=== PATIENT | male | born 1960 | race Caucasian/White ===

== ENCOUNTER 2016-11-19 01:41 | Inpatient (IN) | payer MEDICARE, MEDICAID ==
[~2016-11-19] VITALS: Ht 170.2 cm; Wt 120.7 kg
[~2016-11-19 01:41] MED LIST: AMBIEN10 MG PO; ATIVAN1 MG PO; BAYER CHEWABLE81 MG PO; CATAPRES0.3 MG PO; COLACE100 MG PO; COREG12.5 MG PO; DESERYL100 MG PO; DIFLUCAN200 MG PO; EFFEXOR75 MG PO; FIBRICOR35 MG PO; FISH OIL 1,2001 CAP PO; FLAGYL500 MG PO; GAS-X80 MG PO; HCTZ25 MG PO; HYTRIN10 MG PO; IMDUR30 MG PO; K-DUR20 MEQ PO; LANTUS INSULIN10 ML SC; LASIX 40 M40 MG/5 ML PT; LIPITOR80 MG PO; LOMOTIL TABLET1 TAB PO; LYRICA150 MG PO; MICONAZOLE NITR28 GM; NORVASC5 MG PO; NOVOLIN 70/30 110 ML; OPTIVE SENSITI1 EACH EACH EYE; OXYBUTYNIN CHLOR5 MG PO; PERFOROMIS20 MCG/21 INH; PLAVIX75 MG PO; PRILOSEC20 MG PO; PROAIR HFA8.5 GM INH; REFRESH TEARS15 ML EACH EYE; SPIRIVA18 MCG INH; ULTRAM50 MG PO; VOLTAREN100 GM TOPICAL; ZANAFLEX6 MG PO
[2016-11-19 02:26] LABS: BASOPHILS 0.6 % (0.0-2.0); EOSINOPHILS 2.8 % (0-7); HEMATOCRIT 40.6 % (42.0-54.0); HEMOGLOBIN 14.1 g/dL (13.5-17.5); IMMATURE GRANULOCYTES 0.2 % (0-5); LYMPHOCYTES 26.9 % (15-50); MCH 28.6 pg (26.0-34.0); MCHC 34.7 g/dL (31.0-37.0); MCV 82.4 fL (80.0-100.0); MEAN PLATELET VOLUME 11.4 fL (7.4-10.4); MONOCYTES 7.8 % (2-11); NEUTROPHILS 61.7 % (40-80); PLATELET COUNT 206 10x3/uL (130-400); RBC 4.93 10x6/uL (4.20-6.10); RDW 13.2 % (11.5-14.5); WBC 8.5 10x3/uL (4.8-10.8)
[2016-11-19 02:27] LABS: APPEARANCE CLEAR (CLEAR); BILIRUBIN NEGATIVE (NEGATIVE); COLOR STRAW (YELLOW); GLUCOSE 1000 mg/dL (NEGATIVE); KETONE NEGATIVE (NEGATIVE); LEUKOCYTE ESTERASE NEGATIVE (NEGATIVE); NITRITE NEGATIVE (NEGATIVE); PH 7.5 (5.0-6.0); PROTEIN NEGATIVE (NEGATIVE); SPECIFIC GRAVITY 1.005 (1.005-1.020); UROBILINOGEN NORMAL (NORMAL)
[2016-11-19 02:37] LABS: ALBUMIN 3.4 g/dL (3.4-5.0); ALKALINE PHOSPHATASE 119 U/L (46-116); ALT (SGPT) 19 U/L (10-68); BILIRUBIN - TOTAL 0.31 mg/dL (0.2-1.3); CALCIUM 9.1 mg/dL (8.5-10.1); CARBON DIOXIDE 28.1 mmol/L (21.0-32.0); CHLORIDE - SERUM 96 mmol/L (98-107); CREATININE - SERUM 0.8 mg/dL (0.6-1.3); POTASSIUM - SERUM 3.8 mmol/L (3.5-5.1); PROTEIN - SERUM 6.9 g/dL (6.4-8.2); SODIUM 132 mmol/L (136-145); UREA NITROGEN 13 mg/dL (7-18); eGFR NON AFRICAN AMERICAN > 90 mL/min (90-120)
[2016-11-19 02:50] LABS: CREATINE KINASE 108 UL (21-232); MAGNESIUM - SERUM 1.7 mg/dL (1.8-2.4); PRO BNP 25 pg/mL (0-125)
[2016-11-19 02:51] LABS: CALC OSMOLALITY 290 mosm/kg (275-300); GLUCOSE 561 mg/dL (74-106)
--- NOTE | 2016-11-19 06:22 | NUR ---
ADMIT TO ROOM 239 FROM ER. PT ALERT/ORIENTED. SALINE LOCK TO RIGHT A/C. LEFT AKA, BUT IS ABLE TO TRANSFER WITH MINIMAL ASSISTANCE. ADMISSION ASSESSMENT AND HISTORY INITIATED.
[2016-11-19 06:49] VITALS: BP 141/78; BMI 40.8
[2016-11-19] MEDS ORDERED: XIGDUO XR 5 MG1 EAC1 (07:40)
[2016-11-19] MEDS ORDERED: COZAAR100 MG PO (07:49)
[2016-11-19 08:00] VITALS: BP 156/81
--- NOTE | 2016-11-19 09:55 | NUR ---
PT IS ALERT. ASSESSMENT DONE PER FLOWSHEET. NO OTHER NEEDS AT THIS TIME. WILL CONTINUE TO MOINTOR.
--- NOTE | 2016-11-19 10:57 | NUR ---
PT OOB AT THIS TIME. TEACHING ABOUT SCD'S DONE WELL. WILL CONTINUE TO MONTIOR.
[2016-11-19 12:00] VITALS: BP 114/83
[2016-11-19 13:58] VITALS: Ht 170.2 cm; Wt 120.7 kg
[2016-11-19 16:00] VITALS: BP 137/81
[2016-11-19 16:32] LABS: HEMOGLOBIN A1C 11.5 % (4.8-6.0)
--- NOTE | 2016-11-19 19:15 | NUR ---
Received report from Alicia VALENTINE.
--- NOTE | 2016-11-19 19:30 | NUR ---
Received patient resting in bed, alert and oriented x 4, Right AC PIV is SL, denies any pain or discomfort at this time, on room air.
--- NOTE | 2016-11-19 21:34 | NUR ---
Stat serum glucose ordered per protocol, HS BG = 425 and recheck = 434. Holding insulin until serum level obtained.
[2016-11-19 21:39] VITALS: BP 144/85
--- NOTE | 2016-11-19 22:17 | NUR ---
Serum glucose level = 426, given routine dose of Lantus insulin 90 Units and 20 Units Regular sliding scale insulin. Paged Uyen Pepper APN to notify of same.
--- NOTE | 2016-11-19 22:35 | NUR ---
Received call back from Uyen Pepper APN, insulin was adjusted already today, will continue to monitor for effectiveness. No new orders at this time.
--- NOTE | 2016-11-20 01:14 | NUR ---
Resting quietly at this time, respirations easy and regular, has taken oxygen off, pulse ox on room air = 98%, stated earlier that he only uses PRN when feeling SOB. Deemed to be sleeping at this time.
[2016-11-20 01:40] VITALS: BP 111/67
[2016-11-20 04:56] VITALS: BP 136/72
[2016-11-20 06:03] LABS: BASOPHILS 0.1 % (0.0-2.0); EOSINOPHILS 0.1 % (0-7); HEMOGLOBIN 14.1 g/dL (13.5-17.5); IMMATURE GRANULOCYTES 0.3 % (0-5); LYMPHOCYTES 10.7 % (15-50); MCH 28.1 pg (26.0-34.0); MCHC 34.4 g/dL (31.0-37.0); MCV 81.8 fL (80.0-100.0); MEAN PLATELET VOLUME 11.6 fL (7.4-10.4); MONOCYTES 1.6 % (2-11); NEUTROPHILS 87.2 % (40-80); PLATELET COUNT 197 10x3/uL (130-400); RBC 5.01 10x6/uL (4.20-6.10); RDW 13.5 % (11.5-14.5)
[2016-11-20 06:29] LABS: CALC OSMOLALITY 282 mosm/kg (275-300); CARBON DIOXIDE 23.1 mmol/L (21.0-32.0); CHLORIDE - SERUM 96 mmol/L (98-107); CREATININE - SERUM 0.7 mg/dL (0.6-1.3); SODIUM 131 mmol/L (136-145); UREA NITROGEN 15 mg/dL (7-18); eGFR NON AFRICAN AMERICAN > 90 mL/min (90-120)
--- NOTE | 2016-11-20 06:30 | NUR ---
Received call from Operations Forester with critical lab, serum glucose = 433 @0599 lab draw. Already has been rechecked via fingerstick @0610 = 393. Received 16 Units regular insulin per sliding scale. See previous note, aware of elevated BGs and has been regulating insulin doses.
[2016-11-20 06:35] LABS: GLUCOSE 433 mg/dL (74-106)
[2016-11-20 08:01] VITALS: BP 105/55
--- NOTE | 2016-11-20 11:39 | NUR ---
FSBS 509, CALLED LAB FOR A STAT GLUCOSE REDRAW.
--- NOTE | 2016-11-20 11:40 | NUR ---
HELD BP MEDS BP 105/55.
--- NOTE | 2016-11-20 11:40 | NUR ---
CALLED PHARMACY, WAITING FOR LANTUS TO BE BROUGHT UP.
--- NOTE | 2016-11-20 11:45 | NUR ---
PATIENT C/O GENERALIZED PAIN, HE HAS NEUROPATHY, PHANTOM PAIN IN LEFT AMPUTATION, HE HAS BILATERAL SHOULDER PAIN. 50 MG ULTRAM PO GIVEN NOW.
--- NOTE | 2016-11-20 11:52 | HP ---
PATIENT: STANTON CHAN MEDICAL RECORD: [id number] ACCOUNT: [id number] LOCATION:[address] : [birth year] ADMISSION DATE: 11/19/16 HISTORY AND PHYSICAL EXAMINATION HISTORY OF PRESENT ILLNESS: Mr. Chan is a 56-year-old white male patient of Dr. Brown with known COPD and trach with tracheostomy for over 16 years, who presents with increasing shortness of breath and dyspnea on exertion, orthopnea. He has above-knee amputation of the left leg. He has had recent weight loss. He ran out of his COPD meds approximately 4 months ago and never got them filled, did not think he needed them anymore. He states he has not smoked in 10 years. He is admitted at this time with a COPD exacerbation. PAST MEDICAL HISTORY: Significant for previous CVA, neuropathy, AKA left knee, diabetes, hypertension, coronary artery disease with previous stents, COPD, sleep apnea with trach. PAST SURGICAL HISTORY: Include a T&A, bilateral rotator cuff, left knee surgery, left [id number] amputation, tracheostomy previous stent. ALLERGIES: PENICILLIN, CLINDAMYCIN, CLARITHROMYCIN. HOME MEDICATIONS: Include furosemide 40 mg a day, omeprazole 20 mg b.i.d., tramadol p.r.n., lorazepam 1 t.i.d., Ambien 10 mg at bedtime, terazosin 10 mg at bedtime, fenofibrate 35 daily, amlodipine 5 daily, potassium chloride 20 mEq t.i.d., NPH 70/30, atorvastatin 80 mg a day, aspirin 81 mg a day, clopidogrel 75 mg a day, Lyrica 150 t.i.d., Lantus 90 b.i.d., Xigduo XR 5 mg/1000 mg daily and Cozaar 100 mg b.i.d. FAMILY HISTORY: Significant for cardiovascular disease, diabetes and cancer. SOCIAL HISTORY: The patient's says he has not smoked in 10 years. REVIEW OF SYSTEMS: ____ fever, has had productive cough with discolored sputum, coughing, wheezing. No abdominal pain, no nausea or vomiting. PHYSICAL EXAMINATION: GENERAL: Pleasant and cooperative. HEAD: Normocephalic. NECK: Soft and supple. HEART: Regular. LUNGS: With bilateral wheezes and coarse sounds. ABDOMEN: Soft. EXTREMITIES: Has above-knee amputation of the left. IMPRESSION: Chronic obstructive pulmonary disease exacerbation, uncontrolled diabetes, previous cerebrovascular accident, obstructive sleep disorder, diabetes uncontrolled. PLAN: Admit. We will get a hemoglobin A1c, pulmonary toilet, monitor sugars, probably going to go up with steroids, DVT prophylaxis. See orders for the rest of the plan. TRANSINT:[id number] Voice Confirmation ID: [id number] DOCUMENT ID: [id number] HISTORY AND PHYSICAL [id number] STANTON CHAN MATTHEW DO at 1152 CC: [id number] DICTATION DATE: 11/19/16 [address] QUARTER DOPER: 11/19/161958 ADM IN [facility] [address] [place] [address]
--- NOTE | 2016-11-20 12:05 | NUR ---
SPOKE TO AXEL NURSE PRACTITIONER WITH DR. HODGE AND LET HER KNOW ABOUT PATIENTS BLOOD SUGAR, SHE SAYS TO FOLLOW HIGH SLIDING SCALE. PATIENT RECEIVED 28 UNITS REG INSULIN IN ABDOMEN. RECHECK BLOOD SUGAR IN TWO HOURS.
[2016-11-20 12:24] VITALS: BP 119/60
[2016-11-20 12:51] LABS: HEMOGLOBIN A1C 10.9 % (4.8-6.0)
[2016-11-20 16:00] VITALS: BP 133/63
--- NOTE | 2016-11-20 16:31 | NUR ---
PATIENT C/O H/A RATES IT 8/10 TRAMADOL 50 MG PO GIVEN.
--- NOTE | 2016-11-20 16:41 | NUR ---
FSBS 462, PAGED AXEL TO LET HER BE AWARE.
--- NOTE | 2016-11-20 17:10 | NUR ---
PATIENT SAYS PAIN IS LESS, BUT STILL HAS PAIN, SAYS HE ALWAYS HAS PAIN.
[2016-11-20 20:00] VITALS: BP 148/78
[2016-11-21] VITALS: BP 131/74
--- NOTE | 2016-11-21 | NUR ---
RIGHT ABDOMEN BLEEDING FROM LOVENOX SHOT RECEIVED ON DAY SHIFT. APPLIED SMALL PRESSURE DRESSING AND ICE PACK. BLEEDING APPEARS TO HAVE STOPPED. NO OTHER NEEDS. PT SITTING UP IN CHAIR. WILL CONTINUE TO MONITOR.
[2016-11-21 04:00] VITALS: BP 139/83
--- NOTE | 2016-11-21 04:27 | NUR ---
RIGHT ABDOMEN BLEEDING AGAIN. APPLIED NEW PRESSURE DRESSING AND ICE. WILL CONTINUE TO MONITOR.
[2016-11-21 06:46] LABS: BASOPHILS 0.1 % (0.0-2.0); EOSINOPHILS 0.1 % (0-7); HEMATOCRIT 38.6 % (42.0-54.0); HEMOGLOBIN 13.1 g/dL (13.5-17.5); IMMATURE GRANULOCYTES 0.6 % (0-5); LYMPHOCYTES 9.7 % (15-50); MCH 27.8 pg (26.0-34.0); MCHC 33.9 g/dL (31.0-37.0); MEAN PLATELET VOLUME 12.3 fL (7.4-10.4); MONOCYTES 4.3 % (2-11); NEUTROPHILS 85.2 % (40-80); PLATELET COUNT 219 10x3/uL (130-400); RBC 4.71 10x6/uL (4.20-6.10); RDW 13.6 % (11.5-14.5); WBC 10.6 10x3/uL (4.8-10.8)
[2016-11-21 06:59] LABS: CALC OSMOLALITY 288 mosm/kg (275-300); CALCIUM 8.9 mg/dL (8.5-10.1); CARBON DIOXIDE 24.4 mmol/L (21.0-32.0); CHLORIDE - SERUM 102 mmol/L (98-107); CREATININE - SERUM 0.6 mg/dL (0.6-1.3); POTASSIUM - SERUM 3.6 mmol/L (3.5-5.1); SODIUM 138 mmol/L (136-145); UREA NITROGEN 15 mg/dL (7-18); eGFR NON AFRICAN AMERICAN > 90 mL/min (90-120)
[2016-11-21 07:03] LABS: GLUCOSE 319 mg/dL (74-106)
--- NOTE | 2016-11-21 08:01 | NUR ---
ASSESSMENT DONE. PT DRESSING AND SITTING IN CHAIR AT BEDSIDE, RECEIVING BREATHING TX. A/O. NO DISTRESS NOTED. DENIES NEEDS. CALL LIGHT WITH IN REACH. WILL CONT. TO MONITOR.
[2016-11-21 08:22] VITALS: BP 152/85
--- NOTE | 2016-11-21 10:26 | NUR ---
PT SITTING IN CHAIR NAD NOTED DENIES ANY NEEDS AT THIS TIME
[2016-11-21 12:42] VITALS: BP 153/76
[2016-11-21 16:55] VITALS: BP 147/78
--- NOTE | 2016-11-21 18:06 | NUR ---
PT UP IN W/C, PUSHING SELF IN SOLER. NO DISTRESS NOTED. DENIES NEEDS.
[2016-11-21 21:31] VITALS: BP 150/78
--- NOTE | 2016-11-21 23:19 | NUR ---
PTS INITIAL FSBS @ 21:00 WAS 449. I USED THE S/S ORDERED AND ADMINISTERED 28 UNITS SC ALONG WITH PTS ORDERED LANTUS OF 100 UNITS SC. PT ALSO RECEIVED SOLU-MEDROL 40MG IVP. WHEN RECHECKING PTS FSBS JUST NOW, IT WAS 540. I CALLED THE PHYSICIAN IN ER, DR. LIN, TO RECEIVE ADDITIONAL ORDERS FOR PTS GLUCOSE. PT ALSO STATED THAT HE TAKES OXYCODONE 10/325 TID AT HOME, BUT THAT IT HAS NOT BEEN RESTARTED AND HIS LEFT AKA PHANTOM PAIN IS SEVERE. PT STATES THAT HE GETS HIS RX FOR OXYCODONE FROM DR. TONIA UTTTLE, WHO IS ALSO THE PHYSICIAN WHO DID HIS LEFT AKA [address] LIN ALSO VERBALLY AUTHORIZED THE RESTART OF PTS OXYCODONE. 25 UNITS OF HUMULIN R WAS ADMINISTERED X [address] LIN AND I WILL RECHECK PT FREQUENTLY TO MONITOR HIS GLUCOSE CLOSELY. PT IS NOW READY FOR BED.
[2016-11-22 05:53] VITALS: BP 144/78
[2016-11-22 06:12] LABS: BASOPHILS 0.1 % (0.0-2.0); EOSINOPHILS 0 % (0-7); HEMATOCRIT 38.2 % (42.0-54.0); HEMOGLOBIN 12.8 g/dL (13.5-17.5); IMMATURE GRANULOCYTES 0.6 % (0-5); LYMPHOCYTES 12.4 % (15-50); MCH 27.9 pg (26.0-34.0); MCHC 33.5 g/dL (31.0-37.0); MCV 83.2 fL (80.0-100.0); MEAN PLATELET VOLUME 11.5 fL (7.4-10.4); MONOCYTES 6.5 % (2-11); NEUTROPHILS 80.4 % (40-80); PLATELET COUNT 215 10x3/uL (130-400); RBC 4.59 10x6/uL (4.20-6.10); RDW 13.8 % (11.5-14.5); WBC 8.1 10x3/uL (4.8-10.8)
[2016-11-22 06:42] LABS: CALCIUM 8.9 mg/dL (8.5-10.1); CARBON DIOXIDE 27.2 mmol/L (21.0-32.0); CHLORIDE - SERUM 103 mmol/L (98-107); POTASSIUM - SERUM 4.1 mmol/L (3.5-5.1); SODIUM 138 mmol/L (136-145)
[2016-11-22 06:45] LABS: CALC OSMOLALITY 291 mosm/kg (275-300); CREATININE - SERUM 0.8 mg/dL (0.6-1.3); GLUCOSE 404 mg/dL (74-106); UREA NITROGEN 10 mg/dL (7-18); eGFR NON AFRICAN AMERICAN > 90 mL/min (90-120)
--- NOTE | 2016-11-22 07:30 | NUR ---
PT OUT OF ROOM. ROAMING THE HOSPITAL IN W/C. PT JUST RETURNED TO ROOM. A/O. NO DISTRESS NOTED. NURSE TOLD PT THAT WHILE HIS BLOOD GLUCOSE WAS IN THE 400'S HE NEED TO STAY ON THIS UNIT. NURSING STAFF WILL PT IS GOING TO THE VENDING MACHINE AND GETTING SNACKS. WILL MONITOR.
[2016-11-22 09:04] VITALS: BP 146/84
--- NOTE | 2016-11-22 11:43 | NUR ---
PT SITTIN IN CHAIR AT BEDSIDE. TALKING ON THE PHONE. BLOOD GLUCOSE 325. PT STATES " WELL THAT'S GOOD!" NURSE REPLIED THAT IS WAS NOT "GOOD" PT STATES " FOR ME IT IS" NURSE ATTEMPTED TO EDUCATE PT ON NORMAL BLOOD GLUCOSE. PT CONT TO TALK ON HIS PHONE.
[2016-11-22 12:12] VITALS: BP 164/81
--- NOTE | 2016-11-22 13:54 | NUR ---
PT SITTIN UP IN CHAIR AT BEDSIDE. SLEEPING. EASILY AWAKEN. REQUESTED DIET COKE. NO DISTRESS NOTED. CALL LIGHT WITH IN REACH. WILL CONT. TO MONITOR.
--- NOTE | 2016-11-22 15:25 | NUR ---
NURSE WENT INTO PT'S ROOM TO GIVE MEDS. PT NOT IN HIS ROOM, AND NOT ON THIS FLOOR. MARTHA RN/CHARGE NURSE NOTIFIED. ALSO DR. HODGE NOTIFED. X-RAY TECH HERE TO DO CXR AND IS UNABLE AT THIS TIME D/T PT NOT BEING IN HIS ROOM.
--- NOTE | 2016-11-22 15:46 | NUR ---
PT BACK IN ROOM. SITTING IN W/C SLEEPING. NURSE WOKE PT UP. INFORMED HIM THAT X-RAY WAS HERE TO DO HIS CHEST X-RAY, BUT HE WASN'T IN THE ROOM. PT REPLIED WITH " WELL THEY WOULDN'T FIND ANYTHING ANYWAY, THERE ISN'T A HEART IN THERE."
--- NOTE | 2016-11-22 16:13 | NUR ---
PT'S BLOOD GLUCOSE 285. PT STATES "THAT'S WHY IM SO TIRED TODAY. MY SUGAR IS TO LOW." PT DID ALLOW NURSE TO USE SS INSULIN. PT SAID HE WAS GOING TO THE [email or web address] TO GET A DIET MTN DEW, AND WOULD BE RIGHT BACK.
--- NOTE | 2016-11-22 16:24 | NUR ---
PT BACK IN ROOM.
--- NOTE | 2016-11-22 17:00 | NUR ---
PT SITTING IN CHAIR AT BED SIDE, TALKING ON PHONE. NO DISTRESS NOTED. CALL LIGHT WITH IN REACH. WILL CONT. TO MONITOR.
--- NOTE | 2016-11-22 18:20 | NUR ---
PT IS ALERT. NO SS OF DISTRESS AT THIS TIME. WILL CONTINUE TO MOTNIOR.
--- NOTE | 2016-11-22 19:32 | NUR ---
PT IS RESTING IN A WC IN HIS ROOM WATCHING TV. 2 YOUNG CHILDREN IN ROOM WITH PT. HE DENIES ACUTE PAIN OR DISCOMFORT AT THIS TIME. ALERT AND ORIENTED X 3. SR'S ARE UP X 2 WHILE IN BED. CALL LIGHT AND BEDSIDE TABLE ARE WITHIN EASY REACH.
[2016-11-22 20:19] VITALS: BP 148/60
--- NOTE | 2016-11-22 22:16 | NUR ---
PT IS UP IN HIS WC PROPELLING HIMSELF IN THE HALLWAYS. NO NEEDS VOICED.
--- NOTE | 2016-11-23 00:09 | NUR ---
PT IS RESTING IN BED WITH EYES CLOSED.
[2016-11-23 00:44] VITALS: BP 165/77
--- NOTE | 2016-11-23 03:38 | NUR ---
RESTING IN BED WITH EYES CLOSED.
[2016-11-23 04:23] VITALS: BP 117/62
[2016-11-23 08:24] LABS: BASOPHILS 0.7 % (0.0-2.0); EOSINOPHILS 1.3 % (0-7); HEMOGLOBIN 13.3 g/dL (13.5-17.5); IMMATURE GRANULOCYTES 1.5 % (0-5); LYMPHOCYTES 34.3 % (15-50); MCH 27.9 pg (26.0-34.0); MCHC 33.3 g/dL (31.0-37.0); MEAN PLATELET VOLUME 11.5 fL (7.4-10.4); MONOCYTES 12.8 % (2-11); NEUTROPHILS 49.4 % (40-80); PLATELET COUNT 197 10x3/uL (130-400); RBC 4.76 10x6/uL (4.20-6.10); RDW 13.8 % (11.5-14.5); WBC 7.6 10x3/uL (4.8-10.8)
[2016-11-23 08:31] LABS: CALCIUM 8.7 mg/dL (8.5-10.1); CARBON DIOXIDE 30.8 mmol/L (21.0-32.0); CHLORIDE - SERUM 104 mmol/L (98-107); CREATININE - SERUM 0.7 mg/dL (0.6-1.3); POTASSIUM - SERUM 3.5 mmol/L (3.5-5.1); SODIUM 140 mmol/L (136-145); eGFR NON AFRICAN AMERICAN > 90 mL/min (90-120)
[2016-11-23 08:32] LABS: CALC OSMOLALITY 289 mosm/kg (275-300); GLUCOSE 276 mg/dL (74-106); UREA NITROGEN 16 mg/dL (7-18)
[2016-11-23 09:00] VITALS: BP 115/70
[2016-11-23 16:00] VITALS: BP 143/79
--- NOTE | 2016-11-23 17:36 | NUR ---
ALERT AND ORIENTED X4. SITTING UP IN CHAIR. COMPLAINS OF RT LEG SWELLING AND THROBBING. DISCHARGE ORDERS PLACED ON HOLD PER . RESPIRATORY THERAPY INITIATE TRACH CLEANING. DENIES PAIN. PRN 02 NC FOR SOB. CONITNUE PLAN OF CARE AND SAFETY PRECAUTIONS.
[2016-11-23 20:00] VITALS: BP 132/75
--- NOTE | 2016-11-23 20:00 | NUR ---
RECEIVED IN BEDROOM. SITTING UP IN BEDSIDE CHAIR. STATES HE HAS PAIN IN HIS LEGS ALL THE TIME DUE TO NEUROPATHY. ENCOURAGE TO STATE NEEDS. CALL LIGHT IN REACH
--- NOTE | 2016-11-24 01:45 | NUR ---
RESTING IN BED WITH EYES CLOSED. NO SIGNS OF DISTRESS. CALL LIGHT IN REACH
[2016-11-24 04:00] VITALS: BP 129/79
[2016-11-24 06:18] LABS: BASOPHILS 0.6 % (0.0-2.0); EOSINOPHILS 1.5 % (0-7); HEMATOCRIT 38.9 % (42.0-54.0); HEMOGLOBIN 12.6 g/dL (13.5-17.5); IMMATURE GRANULOCYTES 1.5 % (0-5); LYMPHOCYTES 32.9 % (15-50); MCH 27.4 pg (26.0-34.0); MCHC 32.4 g/dL (31.0-37.0); MCV 84.6 fL (80.0-100.0); MEAN PLATELET VOLUME 11.5 fL (7.4-10.4); MONOCYTES 9.1 % (2-11); NEUTROPHILS 54.4 % (40-80); PLATELET COUNT 199 10x3/uL (130-400); RDW 14.1 % (11.5-14.5); WBC 7.2 10x3/uL (4.8-10.8)
[2016-11-24 06:37] LABS: CALC OSMOLALITY 284 mosm/kg (275-300); CALCIUM 8.8 mg/dL (8.5-10.1); CARBON DIOXIDE 29.7 mmol/L (21.0-32.0); CHLORIDE - SERUM 104 mmol/L (98-107); CREATININE - SERUM 0.7 mg/dL (0.6-1.3); POTASSIUM - SERUM 3.6 mmol/L (3.5-5.1); SODIUM 139 mmol/L (136-145); UREA NITROGEN 18 mg/dL (7-18); eGFR NON AFRICAN AMERICAN > 90 mL/min (90-120)
[2016-11-24 06:42] LABS: GLUCOSE 195 mg/dL (74-106)
[2016-11-24 08:00] VITALS: BP 145/80
[2016-11-24] MEDS ORDERED: PREDNISONE10 MG PO (12:30)
--- NOTE | 2016-11-24 13:08 | NUR ---
ALERT AND ORIENTED X4. DISCHARGE INSTRUCTIONS GIVEN VERBALLY AND WRITTEN. LANTIS PEN AND INSULIN GIVEN FOR HOME USE. WRITTEN PRESCRIPTION PROVIDED. DISCHARGE PAPERS SIGNED ON CHART. NO IV. ESCORT TO RIDE VIA PERSONAL WHEELCHAIR. REMAINS FREE FROM INJURY.
--- NOTE | 2016-11-24 13:10 | NUR ---
Patient Name: STANTON SCOTT Admission Status: ER Accout number: [id number] Admission Date: 11-20-2016 : 1960 Admission Diagnosis:SHORTNESS OF BREATH Attending: DIONNA Current LOS: 4 Anticipated DC Date: 11-24-2016 Planned Disposition: Home Primary Insurance: [employer] ADV Discharge Planning Comments: * Is the patient Alert and Oriented? Yes 0 * How many steps to enter\exit or inside your home? RAMP 0 * PCP DR. ZHONG 0 * Pharmacy [facility] [address] OR [facility] [address] * Preadmission Environment Home with Family 0 * ADLs Partial Dependent 0 * Partial ADLs (Assistance needed) Bathing Medication Management 0 * Equipment Glucometer Wheelchair 0 * Other Equipment PT HAS NON WORKING ELECTRIC WHEELCHAIR ALSO. NO MEDICAL EQUIPMENT PROVIDER PREFERENCE 0 * List name and contact numbers for known caregivers / representatives who currently or will assist patient after discharge: BAYLEE VITALE, DTR IN [facility], 0 * Community resources currently utilized None 0 * Please name any agencies selected above. NONE 0 * Additional services required to return to the preadmission environment? No 0 * Can the patient safely return to the preadmission environment? Yes 0 * Has this patient been hospitalized within the prior 30 days at any hospital? No 0 CM MET WITH PT AND ROSALINA IN [facility] IN ROOM TO DISCUSS DISCHARGE PLANNING AND NEEDS. PT REPORTS LIVING WITH HIS ADULT SON AND DAUGHTER IN [place]. PT REPORTS BEING PARTIALLY DEPENDENT UPON FAMILY FOR MEDICATION MANAGEMENT, BATHING, COOKING AND CLEANING. PT HAS A NON WORKING ELECTRIC WHEELCHAIR, LIGHTWEIGHT WHEELCHAIR AND GLUCOMETER. PT HAS NO MEDICAL EQUIPMENT PROVIDER PREFERENCE. PT HAS NO OUTSIDE SERVICES ASSISTING IN THE HOME. CM DISCUSSED AVAILABILITY OF HOME HEALTH, REHAB SERVICES AND MEDICAL EQUIPMENT. PT DENIES DISCHARGE NEEDS, REPORTS HIS DAUGHTER IN [place] IS HERE TO DRIVE HIM HOME TODAY. IMPORTANT MESSAGE FROM MEDICARE PROVIDED AND EXPLAINED. Critical Care Physician Assistant: Karl Day
== END 2016-11-24 13:00 | disposition home or self-care (01) | DRG 192 ==
LOC: D.ER 01:41 → D.M2 04:26 → OBSVTIME 04:26 → D.M2 11-20 17:49
PROVIDERS: Emergency Medicine; ADMIT Family Medicine
DX: J44.1 Chronic obstructive pulmonary disease with (acute) exacerbation (principal); E11.40 Type 2 diabetes mellitus with diabetic neuropathy, unspecified; I10 Essential (primary) hypertension; I25.10 Atherosclerotic heart disease of native coronary artery without angina pectoris; G47.33 Obstructive sleep apnea (adult) (pediatric); E11.65 Type 2 diabetes mellitus with hyperglycemia; Z93.0 Tracheostomy status; Z89.612 Acquired absence of left leg above knee; Z86.73 Personal history of transient ischemic attack (TIA), and cerebral infarction without residual deficits; Z95.5 Presence of coronary angioplasty implant and graft; Z87.891 Personal history of nicotine dependence; Z79.4 Long term (current) use of insulin

== ENCOUNTER 2017-10-15 21:48 | Emergency (ER) | payer MEDICARE, MEDICAID ==
[2016-11-19 13:58] VITALS: BMI 40.7
[~2017-10-15 21:48] MED LIST changes: +COZAAR100 MG PO; +PREDNISONE10 MG PO; +XIGDUO XR 5 MG1 EAC1
[2017-10-16 00:30] LABS: BASOPHILS 0.4 % (0-2); EOSINOPHILS 3.6 % (0-7); HEMATOCRIT 38.5 % (42.0-54.0); HEMOGLOBIN 13.5 g/dL (13.5-17.5); IMMATURE GRANULOCYTES 0.2 % (0-5); LYMPHOCYTES 26.8 % (15-50); MCH 29.3 pg (26.0-34.0); MCHC 35.1 g/dL (31.0-37.0); MCV 83.7 fL (80.0-100.0); MONOCYTES 6.2 % (2-11); NEUTROPHILS 62.8 % (40-80); PLATELET COUNT 209 10x3/uL (130-400); RDW 13.1 % (11.5-14.5); WBC 9.2 10x3/uL (4.8-10.8)
[2017-10-16 00:50] LABS: ALBUMIN 3.3 g/dL (3.4-5.0); BILIRUBIN - TOTAL 0.3 mg/dL (0.2-1.3); CALCIUM 9.1 mg/dL (8.5-10.1); CARBON DIOXIDE 22.8 mmol/L (21.0-32.0); CREATININE - SERUM 1.4 mg/dL (0.6-1.3); POTASSIUM - SERUM 3.8 mmol/L (3.5-5.1); PROTEIN - SERUM 6.6 g/dL (6.4-8.2)
[2017-10-16 02:04] LABS: APPEARANCE CLEAR (CLEAR); BILIRUBIN NEGATIVE (NEGATIVE); COLOR YELLOW (YELLOW); GLUCOSE 1000 mg/dL (NEGATIVE); KETONE NEGATIVE (NEGATIVE); NITRITE NEGATIVE (NEGATIVE); PROTEIN NEGATIVE (NEGATIVE); UROBILINOGEN NORMAL (NORMAL)
== END 2017-10-16 05:41 | disposition home or self-care (01) ==
LOC: D.ER 21:48
PROVIDERS: Physician Assistant Medical
DX: E11.65 Type 2 diabetes mellitus with hyperglycemia (principal); Z79.4 Long term (current) use of insulin; G62.9 Polyneuropathy, unspecified; J44.9 Chronic obstructive pulmonary disease, unspecified; I50.9 Heart failure, unspecified; I10 Essential (primary) hypertension

== ENCOUNTER 2017-10-29 18:42 | Emergency (ER) | payer MEDICARE, MEDICAID ==
[2016-11-19 13:58] VITALS: BMI 40.7
[2017-10-29 20:30] LABS: BASOPHILS 0.7 % (0-2); EOSINOPHILS 4.1 % (0-7); HEMATOCRIT 43.7 % (42.0-54.0); HEMOGLOBIN 14.9 g/dL (13.5-17.5); IMMATURE GRANULOCYTES 0.2 % (0-5); LYMPHOCYTES 26.7 % (15-50); MCH 29.2 pg (26.0-34.0); MCHC 34.1 g/dL (31.0-37.0); MCV 85.7 fL (80.0-100.0); MEAN PLATELET VOLUME 11.5 fL (7.4-10.4); MONOCYTES 7.4 % (2-11); NEUTROPHILS 60.9 % (40-80); PLATELET COUNT 231 10x3/uL (130-400); RDW 13.2 % (11.5-14.5); WBC 8.8 10x3/uL (4.8-10.8)
[2017-10-29 20:39] LABS: INR 0.88 (0.85-1.17); PROTIME 11.6 SECONDS (11.6-15.0)
[2017-10-29 20:44] LABS: ALBUMIN 3.8 g/dL (3.4-5.0); ANION GAP 13.7 mmol/L (8-16); BILIRUBIN - TOTAL 0.29 mg/dL (0.2-1.3); CALCIUM 9.8 mg/dL (8.5-10.1); CARBON DIOXIDE 28.5 mmol/L (21.0-32.0); CREATININE - SERUM 1.2 mg/dL (0.6-1.3); POTASSIUM - SERUM 3.2 mmol/L (3.5-5.1); PROTEIN - SERUM 7.6 g/dL (6.4-8.2)
== END 2017-10-29 23:10 | disposition home or self-care (01) ==
LOC: D.ER 18:42
PROVIDERS: Emergency Medicine
DX: M79.604 Pain in right leg (principal); E11.40 Type 2 diabetes mellitus with diabetic neuropathy, unspecified; Z79.4 Long term (current) use of insulin; J44.9 Chronic obstructive pulmonary disease, unspecified

== ENCOUNTER 2017-12-19 00:24 | Inpatient (IN) | payer MEDICARE, MEDICAID ==
[2017-12-19] VITALS (11 sets, daily range): BP systolic 83–160; BP diastolic 49–88; Ht 170.2 cm; Wt 133.5 kg
[~2017-12-19] VITALS: Ht 170.2 cm; Wt 133.5 kg
[2017-12-19 00:58] LABS: APPEARANCE CLEAR (CLEAR); BILIRUBIN NEGATIVE (NEGATIVE); COLOR YELLOW (YELLOW); GLUCOSE 1000 mg/dL (NEGATIVE); KETONE NEGATIVE (NEGATIVE); NITRITE NEGATIVE (NEGATIVE); PROTEIN NEGATIVE (NEGATIVE); SPECIFIC GRAVITY 1.015 (1.005-1.020); UROBILINOGEN NORMAL (NORMAL)
[2017-12-19 01:05] LABS: BASOPHILS 0.8 % (0-2); HEMATOCRIT 41.9 % (42.0-54.0); HEMOGLOBIN 14.6 g/dL (13.5-17.5); IMMATURE GRANULOCYTES 0.5 % (0-5); LYMPHOCYTES 36.1 % (15-50); MCH 29.2 pg (26.0-34.0); MCHC 34.8 g/dL (31.0-37.0); MCV 83.8 fL (80.0-100.0); MEAN PLATELET VOLUME 12.6 fL (7.4-10.4); MONOCYTES 7.2 % (2-11); NEUTROPHILS 51.4 % (40-80); RDW 13.1 % (11.5-14.5); WBC 7.8 10x3/uL (4.8-10.8)
[2017-12-19 01:09] LABS: KETONE - SERUM SMALL mg/dL (NEGATIVE)
[2017-12-19 01:11] LABS: PLATELET COUNT 177 10x3/uL (130-400)
[2017-12-19 01:19] LABS: ALBUMIN 3.3 g/dL (3.4-5.0); ALKALINE PHOSPHATASE 107 U/L (46-116); ALT (SGPT) 23 U/L (10-68); CALCIUM 9.6 mg/dL (8.5-10.1); CARBON DIOXIDE 22.5 mmol/L (21.0-32.0); CHLORIDE - SERUM 98 mmol/L (98-107); CREATININE - SERUM 1.2 mg/dL (0.6-1.3); POTASSIUM - SERUM 4.3 mmol/L (3.5-5.1); PROTEIN - SERUM 7.1 g/dL (6.4-8.2); SODIUM 130 mmol/L (136-145); UREA NITROGEN 23 mg/dL (7-18); eGFR NON AFRICAN AMERICAN 67 mL/min (90-120)
[2017-12-19 01:20] LABS: CALC OSMOLALITY 294 mosm/kg (275-300); GLUCOSE 638 mg/dL (74-106)
[2017-12-19] MEDS ORDERED: ZANAFLEX4 MG PO (05:34)
[2017-12-19] MEDS ORDERED: NOVOLOG100 U/M1 SC (05:51)
[2017-12-19 08:51] LABS: KETONE - SERUM NEGATIVE (NEGATIVE)
[2017-12-19 09:02] LABS: CALCIUM 9.7 mg/dL (8.5-10.1); CARBON DIOXIDE 26.9 mmol/L (21.0-32.0); CHLORIDE - SERUM 105 mmol/L (98-107); CREATININE - SERUM 0.9 mg/dL (0.6-1.3); MAGNESIUM - SERUM 1.8 mg/dL (1.8-2.4); PHOSPHOROUS 3.9 mg/dL (2.5-4.9); SODIUM 138 mmol/L (136-145); UREA NITROGEN 18 mg/dL (7-18); eGFR NON AFRICAN AMERICAN > 90 mL/min (90-120)
[2017-12-19 09:12] LABS: CALC OSMOLALITY 283 mosm/kg (275-300); GLUCOSE 202 mg/dL (74-106); POTASSIUM - SERUM 3.2 mmol/L (3.5-5.1)
[2017-12-19] MEDS ORDERED: BREO ELLIPTA 21 EACH IN (15:01)
[2017-12-19] MEDS ORDERED: ALBUTEROL2.5 MG/3 M INH (15:03)
[2017-12-19 15:57] LABS: CREATININE - URINE 58.9 mg/dL (30-125); PROTEIN - URINE 12.2 mg/dL (0.0-11.9)
[2017-12-20 03:00] VITALS: BP 117/73
[2017-12-20 05:36] LABS: BASOPHILS 0.5 % (0-2); EOSINOPHILS 3.8 % (0-7); HEMATOCRIT 39.5 % (42.0-54.0); HEMOGLOBIN 13.4 g/dL (13.5-17.5); IMMATURE GRANULOCYTES 0.4 % (0-5); LYMPHOCYTES 26.4 % (15-50); MCH 28.5 pg (26.0-34.0); MCHC 33.9 g/dL (31.0-37.0); MEAN PLATELET VOLUME 12.3 fL (7.4-10.4); MONOCYTES 8.6 % (2-11); NEUTROPHILS 60.3 % (40-80); PLATELET COUNT 171 10x3/uL (130-400); RDW 13.3 % (11.5-14.5); WBC 8.2 10x3/uL (4.8-10.8)
[2017-12-20 05:49] LABS: ALBUMIN 2.8 g/dL (3.4-5.0); ALKALINE PHOSPHATASE 52 U/L (46-116); ALT (SGPT) 19 U/L (10-68); BILIRUBIN - TOTAL 0.25 mg/dL (0.2-1.3); CALCIUM 8.9 mg/dL (8.5-10.1); CARBON DIOXIDE 24.7 mmol/L (21.0-32.0); CHLORIDE - SERUM 109 mmol/L (98-107); CREATININE - SERUM 0.7 mg/dL (0.6-1.3); POTASSIUM - SERUM 3.5 mmol/L (3.5-5.1); PROTEIN - SERUM 6.1 g/dL (6.4-8.2); SODIUM 143 mmol/L (136-145); UREA NITROGEN 15 mg/dL (7-18); eGFR NON AFRICAN AMERICAN > 90 mL/min (90-120)
[2017-12-20 05:56] LABS: CALC OSMOLALITY 285 mosm/kg (275-300); GLUCOSE 106 mg/dL (74-106)
[2017-12-20 07:40] VITALS: BP 117/73
[2017-12-20] MEDS ORDERED: LASIX40 MG PO (12:37)
== END 2017-12-20 12:55 | disposition home or self-care (01) | DRG 699 ==
LOC: D.ER 00:24 → D.ICU 04:10
PROVIDERS: Family Medicine; Internal Medicine Nephrology
DX: E11.21 Type 2 diabetes mellitus with diabetic nephropathy (principal); Z68.41 Body mass index [BMI] 40.0-44.9, adult; E11.65 Type 2 diabetes mellitus with hyperglycemia; E87.6 Hypokalemia; I11.0 Hypertensive heart disease with heart failure; I50.9 Heart failure, unspecified; H35.30 Unspecified macular degeneration; J44.9 Chronic obstructive pulmonary disease, unspecified; F41.9 Anxiety disorder, unspecified; F32.9 Major depressive disorder, single episode, unspecified; K21.9 Gastro-esophageal reflux disease without esophagitis; E66.01 Morbid (severe) obesity due to excess calories; Z89.612 Acquired absence of left leg above knee; Z86.73 Personal history of transient ischemic attack (TIA), and cerebral infarction without residual deficits; Z87.891 Personal history of nicotine dependence; Z79.4 Long term (current) use of insulin

== ENCOUNTER → 2020-04-18 12:56 | Outpatient (CLI) | payer MEDICARE, MEDICAID ==
[2017-12-19 13:06] VITALS: BMI 44.6
[~2020-04-18 12:56] MED LIST changes: +ALBUTEROL2.5 MG/3 M INH; +BREO ELLIPTA 21 EACH IN; +LASIX40 MG PO; +NOVOLOG100 U/M1 SC; +ZANAFLEX4 MG PO
[2020-04-18 14:49] LABS: CREATININE - SERUM 1.1 mg/dL (0.6-1.3)
== END | disposition home or self-care (01) ==
LOC: D.LAB 12:56 → D.CT 14:30
PROVIDERS: ATTEND Internal Medicine Pulmonary Disease
DX: R04.2 Hemoptysis (principal)